=== PATIENT | female | born 1955 | race Caucasian/White ===

== ENCOUNTER 2025-05-02 09:37 | Emergency (ER) | payer MEDICARE, SELFPAY ==
[2025-05-02] VITALS (8 sets, daily range): BP systolic 124–148; BP diastolic 76–96; BMI 21.3
--- NOTE | 2025-05-02 09:51 | ED.GENMED ---
History of Present Illness
General
Chief Complaint: Cold/Flu/URI Symptoms
Source: patient
Exam Limitations: none
Time Seen by Provider: 05/02/25 09:47
Nursing documentation reviewed up to this point in time: agreed with
History of Present Illness
History of Present Illness:
Patient is a 69-year-old female presents to the ER for evaluation. She reports on Thursday for the past 4 days she started with nausea and aches. She has had the dry heaves and vomited once throughout these couple days. She has had subjective
fevers and chills runny nose. She saw her family doctor today and was sent to the ER for possible dehydration. She denies any abdominal pain. Denies any urinary frequency or urgency. Denies any cough.
Past History
Past History
ED Past Medical History: Other (migraines)
ED Past Surgical History: None
Social History
Tobacco: Non-smoker
Phy Exam
General Physical Exam
General Presentation: no apparent distress
General age: appears stated age
General Skin: warm and dry
General Habitus: elderly
General Mental: alert
General Hydration: dry mucous membranes
Cardiovascular Exam
Cardiovascular Exam: regular rate/rhythm, no murmur and normal peripheral pulses
Pulmonary Exam
Pulmonary Exam: lungs clear and no respiratory distress
Neurological Exam
Neurological Exam: alert and oriented x3
Musculoskeletal Exam
Musculoskeletal Exam: full ROM
Skin Exam
Skin Exam: normal color and warm/dry
Psychiatric Exam
Psychiatric Exam: normal mood/affect
Course
Orders/Labs/Results
Orders:
Orders
05/02/25 09:48
IV Insert/Care/Rem.- Treatment PRN
05/02/25 09:58
Ondansetron Injectable [Zofran] 4 mg IV NOW STA
05/02/25 10:00
0.9% Sodium Chloride 1000 ml [Nss] 1,000 ml IV BOLUS
05/02/25 10:27
COVID-19 Antigen Urgent
Source: Nasal Swab
Complete Blood Count/With Diff Urgent
Comprehensive Metabolic Panel Urgent
Influenza A+B Rapid Molecular Urgent
ADY Source: Nasal Swab
Specimen Description:
05/02/25 12:58
UA Reflex to Culture [Urinalysis Reflex To Culture] Urgent
Date Specimen was Collected: 05/02/25
Time Specimen was Collected: 12:57
Urine Microscopic Reflex Cult Urgent
Urine Culture Urgent
ADY Source: U
Specimen Description:
Date Specimen was Collected: 05/02/25
Time Specimen was Collected: 12:57
Abnormal Lab Results
05/02/25 05/02/25
10:27 12:58
WBC 10.9 H 10^3/uL
(4.8-10.8)
MCHC 32.8 L g/dL
(33.0-37.0)
Abs Immat Gran (auto) 0.1 H 10^3/uL
(0-0.05)
Absolute Neuts (auto) 9.6 H 10^3/uL
(1.4-6.5)
Absolute Lymphs (auto) 0.5 L 10^3/uL
(1.2-3.4)
Absolute Monos (auto) 0.7 H 10^3/uL
(0.1-0.6)
Immature Gran % 0.6 H %
(0-0.5)
Neutrophils % 88.4 H %
(42.2-75.2)
Lymphocytes % 4.3 L %
(20.5-51.1)
Sodium 132 L mmol/L
(135-145)
Glucose 137 H mg/dl
(70-99)
Ur Occult Blood Reflex 3+ A
(Negative)
Leukocyte Esterase Rfl 1+ A
(Negative)
Urine RBC 3-6 A /HPF
(0-2)
Urine Bacteria (Reflex) Few A
(Negative)
Urine Albumin (Reflex) 3+ A
(Neg - Trace)
05/02/25 10:27
05/02/25 10:27
Vital Signs
Initial and Last Documented VS:
Initial Vital Signs
Temp Pulse Resp BP Pulse Ox
99.3 F 113 20 140/96 94
05/02/25 09:39 05/02/25 09:39 05/02/25 09:39 05/02/25 09:39 05/02/25 09:39
Last Documented Vital Signs
Temp Pulse Resp BP Pulse Ox
98.6 F 94 16 141/83 95
05/02/25 10:35 05/02/25 15:00 05/02/25 15:00 05/02/25 15:00 05/02/25 15:00
[employer] consulted with Physician
[employer] consulted with physician?: Yes
Name of Physician Consulted: Thalia
MDM/Problems Addressed
Differential Diagnosis Includes:
not limited to: Viral syndrome, dehydration
MDM/Problems Addressed:
Patient as document is a 69-year-old female who has had several days of nausea mostly dry heaves only vomited once and by her family doctor for concern for dehydration flu. Patient presents awake alert no acute distress she looks mildly dehydrated
on exam. COVID flu are negative. Patient received Zofran and fluids feeling much better. She is afebrile her renal function is normal her urine does not appear infected. Since she has been here she has ate and drank and is stable and feels well
left at home. Case of ED physician likely early viral syndrome will DC home.
*Pulse Oximetry
SaO2: 95
Oxygen Mode of Delivery: Room air
Patient hypoxic: no
*Critical Care Note
Total Time (30-74mins, 75-104mins- exclusive of procedures): Not Applicable
ED Attending Note
-
Portions of this chart may have been created with voice recognition software.� Occasional wrong word or��sound alike� substitutions may have occurred due to the inherent limitations of voice recognition software.
Discharge Plan
Departure
Patient Disposition: Home (Routine Discharge)
Date of Disposition: 05/02/25
Time of Disposition: 16:24
Patient with high blood pressure during this ER visit?: Yes
Condition: Fair
Covid-19: Not Applicable
Discharge Problem:
Nausea and vomiting
Instructions: Nausea and vomiting in adults - ED (DC), BLOOD PRESSURE
Prescriptions:
New
ondansetron 4 mg tablet,disintegrating
4 mg PO Q8H PRN (Reason: nausea and vomiting) Qty: 10 0RF
No Action
No Meds [No Current Medications]
0
tramadol 50 MG tablet
25 mg PO Q6HPRN PRN (Reason: pain) Qty: 14 0RF
Referrals:
Maren Choudhary PA [Family Provider, Family Practice]
Activity Restrictions/Additional Instructions:
Symptoms are consistent with viral syndrome/nausea and vomiting.
A prescription for Zofran was sent to your pharmacy take as directed.
Clear fluids for the next 24 hours follow bland solid foods
Follow-up with your family doctor in the next 2 days for reevaluation return if any worsening of symptoms.
Interventions
Interventions:
*Risk Screen - Suicide Last Done: 05/02/25 10:35
*General Assessment Last Done: 05/02/25 10:35
*Neglect/Abuse Screening Last Done: 05/02/25 10:35
*ED- Fall Risk Assessment Last Done: 05/02/25 10:35
*ED COVID-19 Vaccine History Last Done: 05/02/25 10:35
*ED Influenza Vaccine History Last Done: 05/02/25 10:35
*Nursing Disposition Last Done: 05/02/25 16:55
ED- Pulmonary Assessment Last Done: 05/02/25 10:35
Discharge Date and Time
Discharge Date/Time: 05/02/25 16:55
Print Language: SYRIAN
[2025-05-02] MEDS: NSS 1000 IV (10:28)
[2025-05-02] MEDS: ZOFRAN 4 MG IV (10:29)
[2025-05-02 10:46] LABS: Hematocrit 39.0 % (37.0-47.0); Hemoglobin 12.8 g/dL (12.0-16.0); Mean Corp Hgb Conc. 32.8 g/dL (33.0-37.0); Mean Corpuscular Volume 91.3 fL (81.0-99.0); Nucleated Red Blood Cells % 0 %; Platelet Count 171 10^3/uL (130-400); Red Cell Dist. Width 13.1 % (11.5-14.5)
[2025-05-02 10:59] LABS: ALT (SGPT) 30 U/L (0-35); AST (SGOT) 29 U/L (14-36); Albumin 3.8 g/dl (3.5-5.0); Alkaline Phosphatase 59 U/L (38-126); Blood Urea Nitrogen 16 mg/dl (7-17); Calcium 9.1 mg/dl (8.4-10.2); Carbon Dioxide 25 mmol/L (22-30); Chloride 98 mmol/L (98-107); Estimated Creatinine Clearance 56 ml/min; Glucose 137 mg/dl (70-99); Potassium 3.8 mmol/L (3.5-5.1); Sodium 132 mmol/L (135-145); Total Protein 6.5 g/dl (6.3-8.2); eGFR > 60.00
[2025-05-02 11:04] LABS: COVID-19 Antigen Negative (Negative)
--- NOTE | 2025-05-02 12:49 | EDRN ---
ED PCT in room assisting pt to get a urine spec.
--- NOTE | 2025-05-02 13:00 | EDRN ---
Pt OOB to [facility] and gave a urine spec and sent to lab at this time;.
[2025-05-02 13:10] LABS: Urine Character Clear (Clear)
--- NOTE | 2025-05-02 15:34 | EDRN ---
TT sent to Judy Langston NP about pt disposition. Daughter is asking as pt lives 50 minutes away from here.
== END 2025-05-02 16:55 | disposition home or self-care (01) ==
LOC: EMR 09:37
PROVIDERS: Nurse Practitioner; EMERGENCY PHYSICIAN Emergency Medicine; FAMILY PHYSICIAN Physician Assistant
DX: R11.2 Nausea with vomiting, unspecified (principal)
CPT/HCPCS: 99283; 80053; 81003; 81015; 85025; 87086; 87502; 87811

== ENCOUNTER → 2025-06-08 12:05 | Outpatient (REF) | payer MEDICARE, SELFPAY | LOC: WDC 12:05 | PROVIDERS: ATTENDING PHYSICIAN Physician Assistant | DX: Z12.31 Encounter for screening mammogram for malignant neoplasm of breast (principal) | CPT/HCPCS: 77063; 77067 ==

== ENCOUNTER → 2025-06-13 09:18 | Outpatient (REF) | payer MEDICARE, SELFPAY | LOC: WDC 09:18 | PROVIDERS: ATTENDING PHYSICIAN Physician Assistant | DX: R92.8 Other abnormal and inconclusive findings on diagnostic imaging of breast (principal) | CPT/HCPCS: 76642 ==